=== PATIENT | female | born 1940 | race Two or more races ===

== ENCOUNTER 2016-11-13 15:12 | Inpatient (IN) | payer MEDICARE, OTHER ==
[~2016-11-13] VITALS: Ht 154.9 cm; Wt 50.3 kg
[~2016-11-13 15:12] MED LIST: ASPI81TA2 PO; METO-304 PO; METO25TA3; REPA0.5T; TERA1CAP4
[2016-11-13 15:43] LABS: BASOPHILS # (AUTO) 0.2 /CMM (0.0-0.2); BASOPHILS % (AUTO) 3.4 % (0.0-2.0); DIFF TOTAL % 100 %; EOSINOPHILS # (AUTO) 0.1 /CMM (0.0-0.7); EOSINOPHILS % (AUTO) 1.6 % (0.0-6.0); HEMATOCRIT 37 % (33-45); HEMOGLOBIN 12.2 g/dL (11.5-14.8); LYMPHOCYTES # (AUTO) 1.5 /CMM (0.8-4.8); LYMPHOCYTES % (AUTO) 21.9 % (20.0-44.0); MEAN CORPUSCULAR HEMOGLOBIN 30 PG (26.0-33.0); MEAN CORPUSCULAR HGB CONC 33 g/dl (31.0-36.0); MEAN CORPUSCULAR VOLUME 89 fL (82-100); MONOCYTES # (AUTO) 0.5 /CMM (0.1-1.30); MONOCYTES % (AUTO) 7.3 % (2.0-12.0); NEUTROPHILS # (AUTO) 4.3 /CMM (1.8-8.9); NEUTROPHILS % (AUTO) 65.8 % (43.0-81.0); PLATELET COUNT (AUTO) 154 /CMM (150-450); RED BLOOD CELL COUNT(AUTO) 4.13 MIL/uL (4.0-5.2); WHITE BLOOD COUNT (AUTO) 6.6 K/uL (4.3-11.0)
[2016-11-13 15:53] LABS: CALCIUM, SERUM 8.4 mg/dL (8.5-10.1); CREATININE 4.1 mg/dL (0.6-1.3); POTASSIUM 4.6 mmol/L (3.5-5.1)
[2016-11-13 15:58] LABS: PHOSPHORUS 4.3 mg/dL (2.5-4.9)
[2016-11-13] MEDS ORDERED: Calcium Gluconate 1GM/10ML 4.65 MEQ in IV D5W 50 ML IV ONE ×4 (16:00)
[2016-11-13] MEDS ORDERED: INSULIN REGULAR, HUMAN 100 UNIT/ML 10 ML VIAL IV ONE (16:00)
[2016-11-13] MEDS ORDERED: DEXTROSE 50%-WATER 50 ML DISP.SYRIN IV ONE ×2 (16:00)
[2016-11-13] MEDS ORDERED: ALBUTEROL FS 2.5 MG/3 ML VIAL.NEB NEB ONE ×2 (16:00)
[2016-11-13 16:01] LABS: TROPONIN I 0.132 ng/mL (0.00-0.056)
[2016-11-13 16:05] LABS: ALBUMIN 3.5 g/dL (3.4-5.0); BILIRUBIN,DIRECT 0.1 mg/dL (0.0-0.2); BILIRUBIN,TOTAL 0.4 mg/dL (0.2-1.0); INDIRECT BILIRUBIN 0.3 mg/dL (0.0-1.1); TOTAL PROTEIN, SERUM 7.1 g/dL (6.4-8.2)
[2016-11-13] MEDS: ASPIRIN 81 MG TAB.CHEW PO SCH (17:00)
[2016-11-13] MEDS ORDERED: ENOXAPARIN SODIUM 30 MG/0.3 ML DISP.SYRIN SQ SCH (19:00)
[2016-11-13] MEDS ORDERED: DEXTROSE 50%-WATER 50 ML DISP.SYRIN IV PRN (19:00)
[2016-11-13] MEDS ORDERED: INSULIN REGULAR, HUMAN 100 UNIT/ML 3 ML VIAL SQ PRN (19:00)
[2016-11-13 19:30] VITALS: BP 155/53
[2016-11-13] MEDS ORDERED: LEVO137T24 PO (19:36)
[2016-11-13] MEDS ORDERED: VALS80TA2 PO (19:36)
[2016-11-13] MEDS ORDERED: ROSU10TA PO (19:36)
[2016-11-13] MEDS ORDERED: SEVE800T8 PO (19:36)
[2016-11-13] MEDS ORDERED: FERR-58 PO (19:36)
[2016-11-13] MEDS ORDERED: GUAI600T PO (19:36)
[2016-11-13 20:00] VITALS: BP 151/45
[2016-11-13] MEDS ORDERED: IV SET PRIMARY PUMP SET 1 EA INFUS.SET MC ONE (20:04)
[2016-11-13] MEDS: IV 1/2NS 1000 ML 1,000 ML IV PRN ×2 (20:16→21:32)
[2016-11-13 21:00] VITALS: BP 145/52
[2016-11-13 21:30] VITALS: BP 147/52
[2016-11-13 22:00] VITALS: BP 168/53
[2016-11-13 23:00] VITALS: BP 147/61
[2016-11-14] VITALS (34 sets, daily range): BP systolic 125–198; BP diastolic 35–90
[2016-11-14] MEDS ORDERED: TERAZOSIN HCL 1 MG CAPSULE PO ONE (09:00)
[2016-11-14] MEDS ORDERED: REPAGLINIDE 0.5 MG TABLET PO SCH ×2 (09:00)
[2016-11-14] MEDS: ASPIRIN 81 MG TAB.CHEW PO SCH (09:28)
[2016-11-14] MEDS: BLOOD SUGAR DIAGNOSTIC 1 EACH STRIP IN SCH ×3 (09:29→16:12)
[2016-11-14] MEDS: LEVOTHYROXINE SODIUM 88 MCG TABLET PO SCH (10:29)
[2016-11-14] MEDS ORDERED: IV D5/0.45 NACL 1,000 ML IV ONE (10:30)
[2016-11-14] MEDS ORDERED: PROCHLORPERAZINE EDISYLATE 10 MG/2 ML VIAL IM STA (12:27)
[2016-11-14] MEDS ORDERED: PROCHLORPERAZINE EDISYLATE 10 MG/2 ML VIAL IM PRN (12:30)
[2016-11-14] MEDS ORDERED: ONDANSETRON HCL/PF 4 MG/2 ML VIAL IV PRN (12:30)
[2016-11-14] MEDS ORDERED: FENTANYL PF 100MCG/2ML AMPUL ONE (20:47)
[2016-11-14] MEDS ORDERED: LIDOCAINE HCL/PF 1% 30 ML SDV ONE (20:50)
[2016-11-14] MEDS ORDERED: IOHEXOL 50 ML IV ONE (20:50)
[2016-11-14] MEDS: ATORVASTATIN 10 MG TABLET PO SCH (21:16)
[2016-11-14] MEDS ORDERED: HYDROCODONE/APAP 5/325MG 1 EACH TABLET PO PRN (23:00)
[2016-11-14] MEDS ORDERED: ACETAMINOPHEN 325 MG TABLET ONE (23:20)
[2016-11-14] MEDS: ACETAMINOPHEN 325 MG TABLET PO PRN (23:47)
[2016-11-15] VITALS (15 sets, daily range): BP systolic 91–183; BP diastolic 34–72
[2016-11-15] MEDS ORDERED: CEFAZOLIN 1 GM ONE (04:51)
[2016-11-15] MEDS ORDERED: IV NS 0.9% 50 ML IV ONE (04:53)
[2016-11-15] MEDS ORDERED: IV SET PRIMARY PUMP SET 1 EA INFUS.SET MC ONE (04:53)
[2016-11-15 05:03] LABS: BASOPHILS % (AUTO) 0.3 % (0.0-2.0); DIFF TOTAL % 100 %; EOSINOPHILS # (AUTO) 0.1 /CMM (0.0-0.7); EOSINOPHILS % (AUTO) 1.7 % (0.0-6.0); HEMATOCRIT 34 % (33-45); HEMOGLOBIN 11.4 g/dL (11.5-14.8); LYMPHOCYTES # (AUTO) 1.6 /CMM (0.8-4.8); LYMPHOCYTES % (AUTO) 23.7 % (20.0-44.0); MEAN CORPUSCULAR HEMOGLOBIN 30 PG (26.0-33.0); MEAN CORPUSCULAR HGB CONC 34 g/dl (31.0-36.0); MEAN CORPUSCULAR VOLUME 90 fL (82-100); MONOCYTES # (AUTO) 0.5 /CMM (0.1-1.30); MONOCYTES % (AUTO) 7.2 % (2.0-12.0); NEUTROPHILS # (AUTO) 4.5 /CMM (1.8-8.9); NEUTROPHILS % (AUTO) 67.1 % (43.0-81.0); PLATELET COUNT (AUTO) 128 /CMM (150-450); RED BLOOD CELL COUNT(AUTO) 3.76 MIL/uL (4.0-5.2); WHITE BLOOD COUNT (AUTO) 6.7 K/uL (4.3-11.0)
[2016-11-15 05:17] LABS: CALCIUM, SERUM 7.7 mg/dL (8.5-10.1); CREATININE 3.1 mg/dL (0.6-1.3); PHOSPHORUS 4.7 mg/dL (2.5-4.9); POTASSIUM 3.8 mmol/L (3.5-5.1)
[2016-11-15] MEDS: ACETAMINOPHEN 325 MG TABLET ONE ×2 (05:21→05:32)
[2016-11-15] MEDS: CEFAZOLIN 1 GM in IV NS 0.9% 50 ML IV SCH ×2 (05:22→13:25)
[2016-11-15] MEDS: ASPIRIN 81 MG TAB.CHEW PO SCH (08:15)
[2016-11-15] MEDS: PANTOPRAZOLE 40 MG TABLET.DR PO SCH (08:15)
[2016-11-15] MEDS: LEVOTHYROXINE SODIUM 88 MCG TABLET PO SCH (08:15)
[2016-11-15] MEDS: TERAZOSIN HCL 1 MG CAPSULE PO SCH (08:16)
[2016-11-15] MEDS: VALSARTAN 80 MG TABLET PO SCH (08:16)
[2016-11-15] MEDS: HEPARIN SODIUM, PORCINE 5000 UNITS/1 ML VIAL SQ SCH ×2 (08:17→22:14)
[2016-11-15] MEDS: ACETAMINOPHEN 325 MG TABLET PO PRN ×2 (09:39→17:24)
[2016-11-15] MEDS: BLOOD SUGAR DIAGNOSTIC 1 EACH STRIP IN SCH ×3 (09:39→22:11)
[2016-11-15 13:06] LABS: KETONES,URINE NEGATIVE (NEGATIVE); LEUKOCYTE ESTERASE ,URINE NEGATIVE (NEGATIVE)
[2016-11-15 13:08] LABS: ADD UA MICROSCOPIC YES
[2016-11-15] MEDS ORDERED: SECONDARY IV SET 1 EA INFUS.SET MC ONE (13:12)
[2016-11-15] MEDS ORDERED: IV NS 0.9% 250 ML IV ONE (13:12)
[2016-11-15 13:24] LABS: ADD URINE CULTURE NO; WBC,URINE 0-2 /HPF (0-3)
[2016-11-15] MEDS: ATORVASTATIN 10 MG TABLET PO SCH (22:12)
[2016-11-15] MEDS: CARVEDILOL 3.125 MG TABLET PO SCH (22:13)
[2016-11-16] VITALS: BP 171/69
[2016-11-16] MEDS: ACETAMINOPHEN 325 MG TABLET PO PRN (02:07)
[2016-11-16 04:00] VITALS: BP 170/70
[2016-11-16] MEDS: BLOOD SUGAR DIAGNOSTIC 1 EACH STRIP IN SCH ×2 (06:44→12:14)
[2016-11-16 08:00] VITALS: BP 161/69
[2016-11-16] MEDS: CARVEDILOL 3.125 MG TABLET PO SCH (09:34)
[2016-11-16] MEDS: PANTOPRAZOLE 40 MG TABLET.DR PO SCH (09:34)
[2016-11-16] MEDS: VALSARTAN 80 MG TABLET PO SCH (09:34)
[2016-11-16] MEDS: ASPIRIN 81 MG TAB.CHEW PO SCH (09:34)
[2016-11-16] MEDS: TERAZOSIN HCL 1 MG CAPSULE PO SCH (09:35)
[2016-11-16] MEDS: HEPARIN SODIUM, PORCINE 5000 UNITS/1 ML VIAL SQ SCH (09:36)
[2016-11-16] MEDS: LEVOTHYROXINE SODIUM 88 MCG TABLET PO SCH (09:39)
[2016-11-16 12:00] VITALS: BP 152/81
== END 2016-11-16 16:20 | disposition home or self-care (01) | DRG 242 ==
LOC: ER 15:13 → ICU 16:51 → TELE 11-15 11:30
PROVIDERS: ADMIT Internal Medicine Nephrology; ATTEND Internal Medicine Nephrology
PROC: 02H63JZ Insertion of Pacemaker Lead into Right Atrium, Percutaneous Approach (ICD-10-PCS; 2016-11-14)
PROC: 0JH606Z Insertion of Pacemaker, Dual Chamber into Chest Subcutaneous Tissue and Fascia, Open Approach (ICD-10-PCS; 2016-11-14)
PROC: 02HK3JZ Insertion of Pacemaker Lead into Right Ventricle, Percutaneous Approach (ICD-10-PCS; 2016-11-14)
PROC: 5A1D60Z (ICD-10-PCS; principal; 2016-11-14 20:30)
DX: I44.2 Atrioventricular block, complete (principal); I21.4 Non-ST elevation (NSTEMI) myocardial infarction; N18.6 End stage renal disease; I50.43 Acute on chronic combined systolic (congestive) and diastolic (congestive) heart failure; I12.0 Hypertensive chronic kidney disease with stage 5 chronic kidney disease or end stage renal disease; I25.10 Atherosclerotic heart disease of native coronary artery without angina pectoris; Z95.1 Presence of aortocoronary bypass graft; Z99.2 Dependence on renal dialysis; E11.51 Type 2 diabetes mellitus with diabetic peripheral angiopathy without gangrene; Z98.61 Coronary angioplasty status; E03.9 Hypothyroidism, unspecified; E11.22 Type 2 diabetes mellitus with diabetic chronic kidney disease; I25.5 Ischemic cardiomyopathy; J44.9 Chronic obstructive pulmonary disease, unspecified; K59.00 Constipation, unspecified
CPT/HCPCS: 36415; 71010-TC; 80048-TC; 80076-TC; 81000-TC; 82962-TC; 83735-TC; 83880; 84100-TC; 84484-TC; 85025-TC; 87086-TC; 90935-TC; 93307-TC; A4216; A4606; J0610; J0690; J0780; J1644; J1815; J2405; J3010; J3490; J7050; J7060; Q9967; Z7610